=== PATIENT | male | born 1945 | race Caucasian/White ===

== ENCOUNTER 2018-03-15 05:28 | Day surgery (SDC) | payer OTHER, BC ==
[2018-03-14 08:57] VITALS: BMI 29.6
[2018-03-15] MEDS ORDERED: DEXAMETHASONE SOD PHOSPHATE/PF 10 MG/ML SDV ONE (07:52)
[2018-03-15] MEDS ORDERED: BUPIVACAINE HCL/PF 0.5% (5MG/ML) 10 ML VIAL ONE (07:52)
[2018-03-15] MEDS ORDERED: MIDAZOLAM HCL 2 MG/2 ML SINGLE DOSE VIAL ONE ×2 (08:01)
[2018-03-15] MEDS ORDERED: ONDANSETRON 4 MG/2 ML VIAL IVPUSH PRN (08:19)
[2018-03-15] MEDS ORDERED: LACTATED RINGERS SOLUTION 1,000 ML IV SCH (08:30)
[2018-03-15] MEDS ORDERED: LIDOCAINE HCL/PF 2% SDV 5ML VIAL ONE (08:47)
[2018-03-15] MEDS ORDERED: SODIUM CHLORIDE 0.9% P/F 10 ML VIAL IJ ONE (08:47)
[2018-03-15] MEDS ORDERED: DEXAMETHASONE SOD PHOSPHATE 4 MG/1 ML VIAL ONE (08:47)
[2018-03-15] MEDS ORDERED: ceFAZolin SODIUM 1 GM VIAL ONE (08:47)
[2018-03-15] MEDS ORDERED: KETOROLAC TROMETHAMINE 30 MG/1 ML VIAL ONE (08:47)
[2018-03-15] MEDS ORDERED: PROPOFOL 20 ML ONE (08:48)
--- NOTE | 2018-03-15 09:31 | HP ---
Satellite H - Chief Complaint Chief Complaint: left shoulder pain - Past Medical History Allergies/Adverse Reactions: Allergies Allergy/AdvReac Type Severity Reaction Status Date / Time No Known Allergies Allergy Verified 03/15/18 07:55 - Current Medications Current Medications: Home Medications Medication Instructions Recorded Insulin Detemir [Levemir Flexpen] 17 unit SQ HS 07/04/12 Allopurinol [Zyloprim -] 300 mg PO DAILY 04/25/14 Aspirin [[place] Aspirin] 81 mg PO DAILY 04/25/14 Hydralazine HCl 100 mg PO TID 04/25/14 Nifedipine [Adalat cc] 30 mg PO DAILY 04/25/14 cloNIDine HCL [Catapres -] 0.1 mg PO HS 04/25/14 Atorvastatin Ca [Lipitor] 40 mg PO DAILY 03/14/18 Carvedilol [Coreg -] 12.5 mg PO BID 03/14/18 Chlorthalidone 25 mg PO DAILY 03/14/18 Doxazosin Mesylate 2 mg PO BID 03/14/18 Insulin (Novolog) [Novolog -] 5 units SQ AC 03/14/18 Isosorbide Mononitrate [Isosorbide 60 mg PO BID 03/15/18 Mononitrate ER] Oxycodone HCl/Acetaminophen 1 - 2 tab PO Q6H #30 tab MDD 6 03/15/18 [Percocet 5-325 mg Tablet] Satellite Physical Exam - Physical Examination Vital Signs: Vital Signs Period Temp Pulse Resp BP Sys/Bose Pulse Ox Last 24 Hr 97.6 F 55 18 111/63 96 General Appearance: Well Nourished, Well Developed, Alert & Oriented x3 ENT: Clear Lung: Normal air movement Heart: Regular rate & rhythm Extremities: Other (left shoulder- +ttp, decr rom, + empty can, + neer, + ortiz, nvi MRI + rct) Neurological: Intact, Alert, Oriented Satellite Impression/Plan - Impression/Plan Impression: left shoulder rct Operative Procedure: left shoulder arthroscopy with RCR, SAD Date to be Performed: 03/15/18
[2018-03-15] MEDS ORDERED: ceFAZolin SODIUM 1 GM VIAL IVPB ONE (10:15)
[2018-03-15] MEDS ORDERED: DESFLURANE GAS 240 ML BOTTLE IH ONE (10:39)
[2018-03-15] MEDS ORDERED: ePHEDrine SULFATE 50 MG/1 ML AMPULE ONE (10:51)
--- NOTE | 2018-03-15 11:38 | OP ---
Operative Note - Note: Operative Date: 03/15/18 Pre-Operative Diagnosis: left shoulder impingement syndrome, RTC tear, ACJ OA, Adhesive capsulitis Operation: left shoulder arthroscopy, subacromial decompression, distal clavicle excision, manipulation under anesthesia, Open RTC repair Implants: Arthrex Swivel Lock anchors x 2, Fiber wire and Fiber tape Surgeon: Augustine Beckford 3Rd Grade Teacher: Ramesh Drake Anesthesiologist/GUEST SERVICE AIDE: Sourav Herrmann Anesthesia: General, Local Specimens Removed: shavings Estimated Blood Loss (mls): 100 Drains, Volume Out (mls): 0 Fluid Volume Replaced (mls): 1,000 Operative Report Dictated: Yes
[2018-03-15 13:58] VITALS: TEMP 97.3
[2018-03-15 14:51] VITALS: BP 119/71; PULSE 60
--- NOTE | 2018-03-15 23:01 | OP ---
DATE OF OPERATION: 03/15/2018 PREOPERATIVE DIAGNOSIS: Left shoulder impingement syndrome, AC joint arthritis, adhesive capsulitis, and rotator cuff tear. POSTOPERATIVE DIAGNOSIS: Left shoulder impingement syndrome, AC joint arthritis, adhesive capsulitis, and rotator cuff tear. PROCEDURE: Left shoulder arthroscopy, subacromial decompression, distal clavicle excision, manipulation under anesthesia, and mini open rotator cuff repair. SURGEON: Rafael Funez M.D. MEDICAL ADMINISTRATIVE: Antoine Arechiga ANESTHESIOLOGIST: Sourav Herrmann CRNA ANESTHESIA: Left interscalene block, LMA anesthesia. DRAINS: None. COMPLICATIONS: None. SPECIMENS: Arthroscopic shavings. BLOOD LOSS: 100 mL. BLOOD GIVEN: None. FLUID REPLACEMENT: 1000 mL Plasmalyte. INDICATION: This patient is a 72-year-old male with a preoperative diagnosis of left shoulder impingement syndrome, AC joint arthritis, adhesive capsulitis, and a rotator cuff tear. After understanding the potential risks, complications, alternatives, benefits to surgery versus nonsurgical treatment, the patient elected to undergo this procedure. DESCRIPTION OF PROCEDURE; The patient was brought to the operating room, peripheral IV placed, IV sedation given, 2 g of IV Ancef was given. Left interscalene block was performed. LMA anesthesia was induced. He was placed in the beach chair position with ample padding throughout the left upper extremity. Manipulation under anesthesia was done, and I was able to begin about 20 degrees of forward flexion and abduction, about 10 degrees of internal rotation and 15 to 20 degrees of external rotation via the manipulation. He was prepared and draped in sterile fashion. Bony landmarks were marked out with a marking pen. Posterior portal was established, and diagnostic left shoulder arthroscopy was performed. It was immediately apparent the patient had a very large full thickness crescent shaped rotator cuff tear. The patient had significant osteoarthritis of the glenoid and the humeral head. The humeral head was high riding. The labrum was degenerative. The biceps tendon was intact. Next our attention turned to the subacromial space. The patient had a significant amount of inflammatory bursitis. The lateral port was established under direct visualization using spinal needle. introduced in the subacromial space. A soft tissue bursectomy is performed with the ArthroCare wand, and a straight shaver is used to remove debris. This revealed a very large subacromial spur and a moderate sized subclavicular spur. Both were taken down with a 5.5 mm oval bur. They were fine tuned in reverse and with a straight shaver to remove all debris. Overall the subacromial decompression and the subacromial spur and the distal clavicle spur both looked quite good. The arm was put through a full range of motion. There were no points of impingement. Next, I debrided the top portion of the rotator cuff, revealed the rest of the bursa. This revealed a large irregular complex ragged crescent shaped rotator cuff tear in the supraspinatus and infraspinatus. There was a large area of exposed humeral head. The shaver was used to debride the ragged edge of the rotator cuff as well as to mildly decorticate the humeral head and then landing that area of the rotator cuff. Under direct visualization I put in 6 Fiberwire and Fibertape sutures. I was able to mildly mobilize the rotator cuff. Next, we converted to mini-open approach. The lateral portal was extended with number 15 scalpel blade, subcutaneous hemostasis was achieved with the Bovie cautery. The then the Henly retractor was placed in the wound. Additional open bursectomy was performed, and I was able to see the rotator cuff. I was able to open it up further, freeing it up with the periosteal elevator. That being said, it was still relatively medial to knock it down to the lateral edge of the humeral head. I therefore used a rongeur to remove bone spurs and bursa at the landing bed of the rotator cuff and also continued to decorticate it with knee rasp. There were no sharp edges or bone spurs at the end. I felt the undersurface of the decompression, it was quite smooth and quite good. After additional mobilization, I was able to bring the rotator cuff down to its new landing bed. Then I fed the 6 anterior tails through one, and the 6 posterior tails through another Arthrex Swivelock anchor. They were put down in standard fashion to the humeral head. This brought the entire rotator cuff down to the humeral head to decorticate a portion and moved as a unit. There were no points where it was uncovered and overall looked quite good. The area was copiously irrigated and washed out. The deep deltoid fascial layer was closed with 0 Vicryl suture. 2-0 Vicryl was used to close the deep dermal layer. Final skin reapproximation was done with a running subcuticular 3-0 V-Loc suture. The posterior portal was closed with one 3-0 nylon suture. Both incisions were covered with Aquacel dressing. Total operative time was about 1 hour. There were no complications during the case. The patient tolerated the procedure quite well. He was extubated. His left arm was put into a shoulder immobilizer, and he was brought to the ambulatory recovery room in stable condition. RAFAEL FUNEZ M.D. [id number]
--- NOTE | 2018-03-16 16:51 | PATH ---
Surgical Pathology Report Patient Name: LUDY KEYS [facility]. Rec. #: [id number] /Age/Gender: 1945 (Age: 72) / M Account: [id number] Location: [facility] SURGICAL Taken: 03/15/2018 Received: 03/15/2018 Reported: 03/16/2018 Physicians: Ermelinda Elizabeth M.D. Specimen(s) Received LEFT SHOULDER SHAVINGS Clinical History Left shoulder tear Final Diagnosis SHOULDER SHAVINGS, LEFT, ARTHROSCOPY, SUBACROMIAL DECOMPRESSION, ROTATOR CUFF REPAIR, DISTAL CLAVICLE EXCISION: FRAGMENTS OF BENIGN CARTILAGE, DENSE FIBROCONNECTIVE TISSUE, ADIPOSE TISSUE, AND SKELETAL MUSCLE. Electronically Signed Astrid Jackson M.D. Gross Description Received in formalin, labeled "left shoulder shavings," is a 5.0 x 4.3 x 0.5 cm. aggregate of corey-yellow soft tissue fragments. A hotel services sales representative portion is submitted in one cassette. /03/15/2018 [facility]03/15/2018
== END 2018-03-15 15:03 | disposition home or self-care (01) ==
LOC: JASU-SURG 05:28
PROVIDERS: ATTEND Orthopaedic Surgery
PROC: 0LQ20ZZ Repair Left Shoulder Tendon, Open Approach (ICD-10-PCS; 2018-03-15)
PROC: 0RBK4ZZ Excision of Left Shoulder Joint, Percutaneous Endoscopic Approach (ICD-10-PCS; principal; 2018-03-15 09:30)
PROC: 0PBB4ZZ Excision of Left Clavicle, Percutaneous Endoscopic Approach (ICD-10-PCS; 2018-03-15 09:30)
DX: M75.42 Impingement syndrome of left shoulder (principal); M13.812 Other specified arthritis, left shoulder; M75.02 Adhesive capsulitis of left shoulder; M75.102 Unspecified rotator cuff tear or rupture of left shoulder, not specified as traumatic
CPT/HCPCS: 82962; 88304-TC; 94760

== ENCOUNTER 2020-08-31 11:42 | Emergency (ER) | payer OTHER, BC ==
[2020-08-31 11:55] VITALS: BP 128/66; PULSE 58; TEMP 99; BMI 30.7
[2020-08-31] MEDS ORDERED: DIPHTH,PERTUSS(ACELL),TET 0.5 ML DISP.SYRIN IM ONE ×2 (13:27→13:28)
[2020-08-31] MEDS ORDERED: CEFAZOLIN 2 GM in DEXTROSE 5%-WATER - 50 ML IVPB ONE (14:21)
[2020-08-31] MEDS ORDERED: ceFAZolin SODIUM 1 GM VIAL ONE (14:22)
== END 2020-08-31 16:15 | disposition home or self-care (01) ==
LOC: FER 11:42
PROC: 3E03329 Introduction of Other Anti-infective into Peripheral Vein, Percutaneous Approach (ICD-10-PCS; principal; 2020-08-31)
PROC: 3E0234Z Introduction of Serum, Toxoid and Vaccine into Muscle, Percutaneous Approach (ICD-10-PCS; 2020-08-31)
DX: S90.454A Superficial foreign body, right lesser toe(s), initial encounter (principal)
CPT/HCPCS: 73660-TC-FY; 90471; 90715; 99285-25

== ENCOUNTER 2021-04-08 08:35 | Emergency (ER) | payer OTHER, BC ==
[2021-04-08 08:57] VITALS: BP 116/57; PULSE 60; TEMP 97.9; BMI 30.7
== END 2021-04-08 09:04 | disposition home or self-care (01) ==
LOC: MERGE 08:35 → FER 08:35
DX: J02.9 Acute pharyngitis, unspecified (principal)
CPT/HCPCS: 87070; 99283-25

== ENCOUNTER → 2021-06-23 | Day surgery (SDC) | payer OTHER, BC | END | disposition home or self-care (01) | LOC: JRADIR 11:37 | PROVIDERS: ATTEND Internal Medicine Endocrinology, Diabetes & Metabolism | PROC: 0G9K3ZX Drainage of Thyroid Gland, Percutaneous Approach, Diagnostic (ICD-10-PCS; principal; 2021-06-23) | DX: E04.1 Nontoxic single thyroid nodule (principal) | CPT/HCPCS: 10005; 76942; 88173; 88305-TC ==

== ENCOUNTER 2023-08-15 15:15 | Emergency (ER) | payer OTHER, BC ==
[2023-08-15 15:27] VITALS: BP 102/88; PULSE 62; RESP 18; TEMP 97.8; BMI 29.2
[2023-08-15 16:11] LABS: HEMATOCRIT 47.3 % (35.4-49); HEMOGLOBIN 15.1 G/dL (11.7-16.9); MEAN CELL VOLUME 81.3 fl (80-96); MEAN PLT VOLUME 9.8 fl (7.5-11.1); PLATELET COUNT 133.9 10^3/uL (134-434); RBC 5.82 10^6/uL (4.00-5.60); RDW 17.6 % (11.9-15.9); WHITE BLOOD COUNT 5.8 10^3/uL (4.0-10.8)
[2023-08-15] MEDS: LACTATED RINGERS SOLUTION 1000 ML INFUS.BAG IV ONE (16:15)
[2023-08-15 16:25] LABS: PLATELET ESTIMATE ADEQUATE
[2023-08-15 16:32] LABS: BILIRUBIN,TOTAL 1.4 mg/dl (0.2-1); CALCIUM 9.8 mg/dl (8.5-10.1); CREATININE 1.5 mg/dl (0.6-1.3); POTASSIUM 3.6 mmol/L (3.5-5.1); TOT PROT 6.6 g/dl (6.4-8.2)
[2023-08-15] MEDS: ACETAMINOPHEN 1000 MG/100 ML BAG IVPB ONE (18:48)
== END 2023-08-15 18:45 | disposition home or self-care (01) ==
LOC: FER 15:15
DX: K57.92 Diverticulitis of intestine, part unspecified, without perforation or abscess without bleeding (principal)
CPT/HCPCS: 36415; 74176-TC; 80053; 84484; 85027; 99284-25

== ENCOUNTER 2024-03-11 17:18 | Observation (INO) | payer OTHER, BC ==
[2024-03-11 19:23] LABS: BASO % 0.7 % (0-2.0); EOS % 1.5 % (0-4.5); HEMOGLOBIN 14.2 GM/dL (11.7-16.9); LYMPH % 11.4 % (8-40); MCH 25.9 pg (25.7-33.7); MCHC 33.2 g/dl (32.0-35.9); MEAN CELL VOLUME 78.1 fl (80-96); MONO % 5.4 % (3.8-10.2); PLATELET COUNT 144 10^3/uL (134-434); RDW 17.4 % (11.9-15.9); WHITE BLOOD COUNT 4.7 K/mm3 (4.0-10.0)
[2024-03-11 19:32] LABS: INR 1.01 (0.83-1.09); PROTHROMBIN TIME (PATIENT) 11.4 SEC (9.7-13.0)
[2024-03-11 19:35] LABS: ACTIVATED PTT 34.3 SECONDS (25.2-36.5)
[2024-03-11 19:37] LABS: POTASSIUM 3.8 mmol/L (3.5-5.1)
[2024-03-11 19:39] LABS: ALBUMIN 3.4 g/dl (3.4-5.0); BLOOD UREA NITROGEN 31.7 mg/dL (7-18); CALCIUM 9.6 mg/dL (8.5-10.1)
[2024-03-11 19:43] LABS: CREATININE 1.5 mg/dL (0.55-1.3)
[2024-03-11 19:44] LABS: BILIRUBIN,TOTAL 0.8 mg/dL (0.2-1); TOT PROT 6.5 g/dl (6.4-8.2)
[2024-03-12] MEDS ORDERED: hydrALAZINE HCL 50 MG TABLET (FP) ONE (00:19)
[2024-03-12] MEDS: hydrALAZINE HCL 50 MG TABLET (FP) PO SCH (00:24)
[2024-03-12] MEDS: cloNIDine HCL 0.1 MG TABLET PO ONE (02:13)
[2024-03-12 02:44] VITALS: BMI 33.5
[2024-03-12 05:48] VITALS: RESP 18
[2024-03-12] MEDS ORDERED: PATIENT'S OWN MEDICATION (NON-FORMULARY) (Hydralazine Hcl [Hydralazine Hcl] 100 MG Tablet) PO SCH (06:00)
[2024-03-12] MEDS: INSULIN (LEVEMIR) 100 UNITS/ML UNITS SQ SCH (06:25)
[2024-03-12] MEDS: INSULIN ASPART SLIDING SCALE (NOVOLOG) 1 VIAL SQ SCH (06:27)
[2024-03-12 08:09] LABS: HEMATOCRIT 48.5 % (35.4-49); HEMOGLOBIN 15.5 GM/dL (11.7-16.9); MCH 25.5 pg (25.7-33.7); MEAN CELL VOLUME 79.8 fl (80-96); MEAN PLT VOLUME 8.2 fl (7.5-11.1); PLATELET COUNT 161 10^3/uL (134-434); RBC 6.08 M/mm3 (4.00-5.60); RDW 17.4 % (11.9-15.9); WHITE BLOOD COUNT 5.9 K/mm3 (4.0-10.0)
[2024-03-12 08:36] LABS: POTASSIUM 4.4 mmol/L (3.5-5.1)
[2024-03-12 08:44] LABS: CALCIUM 10.4 mg/dL (8.5-10.1)
[2024-03-12 08:45] LABS: BLOOD UREA NITROGEN 29.6 mg/dL (7-18); MAGNESIUM 1.9 mg/dL (1.8-2.4)
[2024-03-12 08:48] LABS: CREATININE 1.5 mg/dL (0.55-1.3); PHOSPHOROUS 3.4 mg/dL (2.5-4.9)
[2024-03-12] MEDS ORDERED: ENOXAPARIN NA (PORCINE) 40 MG/0.4 ML DISP.SYRIN SQ SCH (10:00)
[2024-03-12] MEDS: DOXAZOSIN MESYLATE 2 MG TABLET PO SCH (10:40)
[2024-03-12] MEDS: CHLORTHALIDONE 25 MG TABLET PO SCH (10:40)
[2024-03-12] MEDS: ISOSORBIDE MONONITRATE 30 MG TAB.SR.24H (FP) PO SCH (10:40)
[2024-03-12 13:47] VITALS: BP 140/80; PULSE 63; TEMP 98.7
[2024-03-12] MEDS ORDERED: ATORVASTATIN CA 40 MG TABLET (FP) PO SCH (22:00)
[2024-03-12] MEDS ORDERED: cloNIDine HCL 0.1 MG TABLET PO SCH (22:00)
== END 2024-03-12 13:53 | disposition home or self-care (01) ==
LOC: JER 17:18 → JERBED 20:38 → J4W 03-12 00:54
PROVIDERS: ATTEND Registered Nurse
PROC: 3E013VG Introduction of Insulin into Subcutaneous Tissue, Percutaneous Approach (ICD-10-PCS; principal; 2024-03-11)
DX: I12.9 Hypertensive chronic kidney disease with stage 1 through stage 4 chronic kidney disease, or unspecified chronic kidney disease (principal); R55 Syncope and collapse; E11.22 Type 2 diabetes mellitus with diabetic chronic kidney disease; E78.5 Hyperlipidemia, unspecified; Z86.73 Personal history of transient ischemic attack (TIA), and cerebral infarction without residual deficits; Z88.8 Allergy status to other drugs, medicaments and biological substances
CPT/HCPCS: 36415; 70450-TC; 71045-TC-FY; 72125-TC; 80048; 80053; 82962; 83735; 84100; 84443; 84484; 85025; 85027; 85610; 85730; 93005; 93010; 93306-TC; 96372; 99285-25; G0378